=== PATIENT | female | born 1960 | race African-American/Black ===

== ENCOUNTER 2022-01-24 14:32 | Outpatient (CLI) | payer OTHER ==
[~2022-01-24 14:32] MED LIST: Magnevist 469MG/ML 20 ML VIAL ONE
== END 2022-01-24 14:33 | disposition home or self-care (01) ==
LOC: CSHMRI 14:32
PROVIDERS: ATTEND Family Medicine
DX: M54.42 Lumbago with sciatica, left side (principal); G89.29 Other chronic pain; B20 Human immunodeficiency virus [HIV] disease; M51.27 Other intervertebral disc displacement, lumbosacral region
CPT/HCPCS: 72158